=== PATIENT | female | born 1975 | race American Indian/Alaskan Native ===

== ENCOUNTER 2019-06-28 13:31 | Emergency (ER) | payer MEDICARE ==
[2019-06-28] MEDS ORDERED: SODIUM CHLORIDE 0.9% 1000 ML 1,000 ML IV ONE ×2 (14:07→15:29)
[2019-06-28] MEDS ORDERED: ONDANSETRON 4 MG/2 ML INJ IV ONE (14:07)
--- NOTE | 2019-06-28 14:20 | Emergency Department Report ---
ED N/V/D HPI - General Chief complaint: Nausea/Vomiting/Diarrhea Stated complaint: NAUSEA/BODYACHE Time Seen by Provider: 06/28/19 14:12 Source: patient, EMS Mode of arrival: Stretcher Limitations: No Limitations - History of Present Illness Initial comments: Patient is 43 years old female with history of HIV, compliant with her medication. Patient presented to the ER complaining of nausea, vomiting and diarrhea since yesterday. Patient stated that she ate outside and she was drinking beer. Patient denied any fever or chills. No cough, runny nose, congestion, shortness of breath or chest pain. Patient also denied any recent travel. Patient found to have a blood pressure of 90/38. Patient received normal saline and Zofran. MD complaint: nausea, vomiting, diarrhea - Related Data Allergies Allergy/AdvReac Type Severity Reaction Status Date / Time No Known Allergies Allergy Verified 06/28/19 13:53 ED Review of Systems ROS: Stated complaint: NAUSEA/BODYACHE Other details as noted in HPI Comment: All other systems reviewed and negative Constitutional: denies: chills, fever Respiratory: denies: cough, shortness of breath, SOB with exertion, SOB at rest, wheezing Cardiovascular: denies: chest pain Gastrointestinal: abdominal pain, nausea, vomiting, diarrhea Genitourinary: denies: urgency, dysuria, frequency, hematuria, discharge, abnormal menses Musculoskeletal: back pain Neurological: denies: headache, weakness, numbness, paresthesias, confusion, abnormal gait ED Past Medical Hx - Past Medical History Previous Medical History?: Yes Hx Seizures: Yes Hx Psychiatric Treatment: Yes (PTSD, Anxiety) Hx HIV: Yes - Surgical History Past Surgical History?: No - Social History Smoking Status: Never Smoker Substance Use Type: None ED Physical Exam - General Limitations: No Limitations General appearance: alert, in no apparent distress - Head Head exam: Present: atraumatic, normocephalic, normal inspection - Eye Eye exam: Present: normal appearance, PERRL - ENT ENT exam: Present: mucous membranes dry - Neck Neck exam: Present: normal inspection, full ROM. Absent: tenderness, meningismus, lymphadenopathy, thyromegaly - Respiratory Respiratory exam: Present: normal lung sounds bilaterally - Cardiovascular Cardiovascular Exam: Present: regular rate, normal rhythm, normal heart sounds - GI/Abdominal GI/Abdominal exam: Present: soft, normal bowel sounds. Absent: distended, tenderness, guarding, rebound, rigid, organomegaly, mass, bruit, pulsatile mass, hernia - Extremities Exam Extremities exam: Present: normal inspection, full ROM, normal capillary refill. Absent: tenderness, pedal edema, joint swelling, calf tenderness - Back Exam Back exam: Present: normal inspection, full ROM. Absent: CVA tenderness (R), CVA tenderness (L) - Neurological Exam Neurological exam: Present: alert, oriented X3, CN II-XII intact, normal gait, reflexes normal - Psychiatric Psychiatric exam: Present: normal mood - Skin Skin exam: Present: warm, intact, normal color ED Course Vital Signs 06/28/19 06/28/19 13:47 15:43 Temperature 98.2 F Pulse Rate 61 65 Respiratory 13 15 Rate Blood Pressure 90/55 104/57 [Right] O2 Sat by Pulse 100 99 Oximetry ED Medical Decision Making - Lab Data Result diagrams: 06/28/19 14:17 06/28/19 14:17 - Medical Decision Making Patient is 43 years old female with history of HIV, compliant with her medication. Patient presented to the ER complaining of nausea, vomiting and diarrhea since yesterday. Patient stated that she ate outside and she was drinking beer. Patient denied any fever or chills. No cough, runny nose, congestion, shortness of breath or chest pain. Patient also denied any recent travel. Patient found to have a blood pressure of 90/38. Patient received normal saline and Zofran. Patient received normal saline, Zofran and Protonix. Patient stated that she is feeling much better. Labs reviewed and is unremarkable except for slightly elevated alcohol level. Patient advised to increase her p.o. intake and to follow-up with her primary care physician in the next 2 to 3 days and to return to the ER if she develop any new symptoms. Critical care attestation.: If time is entered above; I have spent that time in minutes in the direct care of this critically ill patient, excluding procedure time. ED Disposition Clinical Impression: Abdominal pain, Nausea vomiting and diarrhea Disposition: - TO HOME OR SELFCARE Is pt being admited?: No Condition: Stable Instructions: Acute Nausea and Vomiting (ED), Abdominal Pain (ED) Referrals: PRIMARY CARE, [Primary Care Provider] - 3-5 Days
[2019-06-28 14:37] LABS: Hematocrit 40.7 % (30.3-42.9); Hemoglobin 13.7 gm/dl (10.1-14.3); Mean Corpuscular HGB Conc 34 % (30-34); Mean Corpuscular Volume 93 fl (79-97); Platelet Count 228 K/mm3 (140-440); Red Blood Count 4.37 M/mm3 (3.65-5.03); Red Cell Distribution Width 14.6 % (13.2-15.2)
[2019-06-28 15:03] LABS: Alanine Aminotransferase 37 units/L (7-56); Albumin 4.4 g/dL (3.9-5); BUN/Creatinine Ratio 17; Blood Urea Nitrogen 12 mg/dL (7-17); Calcium 8.9 mg/dL (8.4-10.2); Hemolysis Index 12
[2019-06-28 15:06] LABS: Bilirubin,Direct < 0.2 mg/dL (0-0.2)
[2019-06-28 15:27] LABS: Basophils % (Manual) 0 % (0.0-1.8); Eosinophils % (Manual) 0 % (0.0-4.3); Total Cells Counted 100
[2019-06-28 15:28] LABS: Platelet Estimate Consistent w Auto; RBC Morphology Normal
[2019-06-28 15:29] LABS: Bacteria,Urine 1+ /HPF (Negative); Bilirubin,Urine NEG (Negative); Blood,Urine NEG (Negative); Color,Urine Yellow (Yellow); Mucus,Urine FEW /HPF
[2019-06-28] MEDS ORDERED: PANTOPRAZOLE 40 MG INJ IV ONE (15:29)
[2019-06-28 15:33] LABS: Amphetamine Screen,Urine PRESUMPTIVE NEGATIVE; Benzodiazepines Screen,Urine PRESUMPTIVE NEGATIVE; Cocaine Screen,Urine PRESUMPTIVE NEGATIVE; Methadone Screen,Urine PRESUMPTIVE NEGATIVE; Opiate Screen,Urine PRESUMPTIVE NEGATIVE
[2019-06-28 15:38] LABS: HCG Qualitative,Urine Negative (Negative)
[2019-06-28 15:46] LABS: Cannabinoid Screen,Urine PRESUMPTIVE POSITIVE
[2019-06-28 17:37] VITALS: BP 104/57
== END 2019-06-28 17:20 | disposition home or self-care (01) ==
LOC: ED 13:31
DX: R11.2 Nausea with vomiting, unspecified (principal); R19.7 Diarrhea, unspecified; R10.9 Unspecified abdominal pain; F41.9 Anxiety disorder, unspecified; F43.10 Post-traumatic stress disorder, unspecified; Z86.69 Personal history of other diseases of the nervous system and sense organs; Z21 Asymptomatic human immunodeficiency virus [HIV] infection status
CPT/HCPCS: 36415; 80048; 80076; 80307; 81001; 81025; 82150; 83690; 85007; 85025; 87086; 96361; 96374; 96375; 99284; C9113; J2405; J7030; 80320; G0480